=== PATIENT | male | born 1965 | race Two or more races ===

== ENCOUNTER 2017-11-06 03:29 | Emergency (ER) | payer SELFPAY ==
[~2017-11-06] VITALS: Ht 177.8 cm; Wt 102.1 kg
[2017-11-06 03:35] VITALS: BP 155/94
[2017-11-06] MEDS ORDERED: Norco 5mg/325mg tab ORAL ONE (03:45)
[2017-11-06] MEDS ORDERED: IBUPROFEN600 MG ORAL (03:57)
[2017-11-06] MEDS ORDERED: HYDROCODON-ACE1 EA15 ORAL (03:57)
--- NOTE | 2017-11-06 03:57 | Emergency Room Report ---
History of Present Illness General Chief Complaint: Upper Extremity Injury Source: Patient Present Illness HPI This is a 52-year-old male who is right-hand dominant. He presents with chief point of left wrist pain. He felt around 9 PM. He fell on the ulnar aspect of his left wrist. He complaining of left wrist pain. Throbbing in nature. Worse with movement. Pain is 8 out of 10. No other injury. Did not pass out. Allergies: Coded Allergies: SULFA (SULFONAMIDE ANTIBIOTICS) (Verified Allergy, Unknown, 11/06/17) Patient History Past Medical History: see triage record, old chart reviewed Past Surgical History: other Social History: Denies: smoking Immunizations: UTD, other Reviewed Nursing Documentation: PMH: Agreed; PSxH: Agreed Review of Systems Eye: Denies: eye pain, blurred vision ENT: Denies: ear pain, nose congestion, throat swelling Respiratory: Denies: cough, shortness of breath Cardiovascular: Denies: chest pain, palpitations Gastrointestinal: Denies: abdominal pain, diarrhea, nausea, vomiting Musculoskeletal: Reports: joint pain; Denies: back pain Skin: Denies: rash Neurological: Denies: headache, numbness Endocrine: Denies: increased thirst, increased urine Hematologic/Lymphatic: Denies: easy bruising All Other Systems: negative except mentioned in HPI Physical Exam Vital Signs Date Time Temp Pulse Resp B/P (MAP) Pulse Ox O2 Delivery O2 Flow Rate FiO2 11/06/17 03:30 98.1 84 18 155/94 97 Room Air 98.1 vitals with high blood pressure Sp02 EP Interpretation: reviewed, normal General Appearance: well appearing, no apparent distress, alert Head: normocephalic, atraumatic Eyes: bilateral eye PERRL, bilateral eye EOMI ENT: hearing grossly normal, normal pharynx Neck: full range of motion, supple, no meningismus Respiratory: chest non-tender, lungs clear, normal breath sounds Cardiovascular #1: regular rate, rhythm, no murmur Gastrointestinal: normal bowel sounds, non tender, no mass, no organomegaly, no bruit, non-distended Musculoskeletal: back normal, gait/station normal, other - Left wrist: There is tenderness and edema to the ulnar aspect. No deformity. Sensation normal. No pain over the elbow. Psychiatric: mood/affect normal Skin: warm/dry, other - psoriasis plaques Procedures Splinting Splinting : Consent: Verbal Location: eft wrist Pre-Made Type: velcro Splint: volar Pre-Proc Neuro Vasc Exam: normal Post-Proc Neuro Vasc Exam: normal Patient Tolerated: Well Complications: None Medical Decision Making Diagnostic Impression: Primary Impression: Left wrist sprain Qualified Codes: S63.502A - Unspecified sprain of left wrist, initial encounter ER Course Vision with left wrist injury. I see no obvious fracture. He may have a very subtle hairline fracture that I'm not seeing. We'll mobilize and treat similarly. No evidence of dislocation. No evidence of septic joint. Other X-Ray Diagnostic Results Other X-Ray Diagnostic Results : X-Ray ordered: left wrist x-rays # of Views/Limited Vs Complete: 3 View Indication: Pain EP Interpretation: Yes Interpretation: no dislocation, no soft tissue swelling, no fractures Impression: No acute disease Electronically Signed by: Supa Islas MD Last Vital Signs Date Time Temp Pulse Resp B/P (MAP) Pulse Ox O2 Delivery O2 Flow Rate FiO2 11/06/17 03:35 98.1 84 18 155/94 97 Room Air 98.1 Status: improved Disposition: HOME, SELF-CARE Condition: Stable Scripts Ibuprofen* (MOTRIN*) 600 Mg Tablet 600 MG ORAL THREE TIMES A DAY, #30 TAB 0 Refills Prov: SUPA ISLAS M.D. 11/06/17 Hydrocodone/Acetaminophen 5-325* (HYDROCODONE/ACETAMINOPHEN 5-325*) 1 Each Tablet 1 TAB ORAL Q6H PRN for For Pain, #20 TAB 0 Refills Prov: SUPA ISLAS M.D. 11/06/17 Patient Instructions: Wrist Sprain Additional Instructions: Ice pack to the area. Elevate the arm. Return if symptom worsen. Follow-up your doctor in 7 days. If still hurting, may need repeat x-rays. SUPA ISLAS M.D. November 06, 2017 03:57
[2017-11-06 04:10] VITALS: BP 155/94
--- NOTE | 2017-11-06 10:18 | Diagnostic Imaging Report ---
Indication: Pain left wrist pain Findings: 3 views of the left wrist were obtained. No acute fractures, malalignment, erosions or periostitis are identified. Soft tissues are unremarkable. Impression: No acute findings.
== END 2017-11-06 04:12 | disposition home or self-care (01) ==
LOC: EMR 03:35
DX: S63.502A Unspecified sprain of left wrist, initial encounter (principal); W19.XXXA Unspecified fall, initial encounter; Y92.9 Unspecified place or not applicable; Z88.2 Allergy status to sulfonamides
CPT/HCPCS: 99284